=== PATIENT | female | born 2000 | race Two or more races ===

== ENCOUNTER 2020-12-02 14:15 | Inpatient (IN) | payer OTHER ==
[~2020-12-02] VITALS: Ht 165.1 cm; Wt 56.7 kg
[~2020-12-02 14:15] MED LIST: SYNTHROID150 MCG; ZYRTEC10 MG PO
[2020-12-03] MEDS ORDERED: LIOTHYRONINE S50 MCG (08:44)
[2020-12-05] MEDS ORDERED: ULTRACET PO (12:16)
[2020-12-05] MEDS ORDERED: AMOX1TAB5 PO (12:16)
[2020-12-05] MEDS ORDERED: PROTONIX40 MG PO (12:16)
== END 2020-12-05 13:32 | disposition home or self-care (01) | DRG 419 ==
LOC: ER 14:15 → SURG 22:05
PROVIDERS: ADMIT Surgery; ATTEND Surgery
PROC: BF532Z0 Other Imaging of Gallbladder and Bile Ducts using Fluorescing Agent, Intraoperative (ICD-10-PCS; 2020-12-04)
PROC: 0FT44ZZ Resection of Gallbladder, Percutaneous Endoscopic Approach (ICD-10-PCS; principal; 2020-12-04 06:30)
DX: K80.00 Calculus of gallbladder with acute cholecystitis without obstruction (principal); Z20.822 Contact with and (suspected) exposure to COVID-19; K66.0 Peritoneal adhesions (postprocedural) (postinfection)